=== PATIENT | male | born 1980 | race Caucasian/White ===

== ENCOUNTER 2019-10-05 23:24 | Emergency (ER) | payer SELFPAY ==
[~2019-10-05] VITALS: Ht 172.7 cm; Wt 74.8 kg
--- NOTE | 2019-10-05 23:45 | NUR ---
ED Nurse Note: Recieved pt from home, here with c/o SOB, pt states staarted about 1 hour ago, pt actually denies symptoms now, st
--- NOTE | 2019-10-05 23:45 | Emergency Room Report ---
History of Present Illness General Chief Complaint: Dyspnea/Respdistress Source: Patient Present Illness [facility] This a 39-year-old male with no past medical history. He presents with complaint of shortness of breath. Onset was 1 hour prior to arrival. He was laying in bed and also he felt short of breath. Also had chills. Denies any fever. No nausea no vomiting. No cough. His sister was positive for COVID couple weeks ago. They live in the same household. He denies any chest pain. No exertional component. No anxiety but said that he had some symptom about 10 years ago and the doctor told him he had a panic attack. He said he was calm and does not feel anxious. Allergies: Coded Allergies: No Known Allergies (Unverified , 10/05/19) COVID-19 Screening Contact w/high risk pt: No Experienced COVID-19 symptoms?: No COVID-19 Testing performed LINE PERSON: No Patient History Past Medical History: none, see triage record, old chart reviewed Past Surgical History: none Pertinent Family History: none Social History: Denies: smoking Immunizations: other Reviewed Nursing Documentation: PMH: Agreed; PSxH: Agreed Nursing Documentation-PMH Past Medical History: No Stated History Review of Systems Eye: Denies: eye pain, blurred vision ENT: Denies: ear pain, nose congestion, throat swelling Respiratory: Reports: shortness of breath; Denies: cough Cardiovascular: Denies: chest pain, palpitations Gastrointestinal: Denies: abdominal pain, diarrhea, nausea, vomiting Musculoskeletal: Denies: back pain, joint pain Skin: Denies: rash Neurological: Denies: headache, numbness Endocrine: Denies: increased thirst, increased urine Hematologic/Lymphatic: Denies: easy bruising All Other Systems: negative except mentioned in HPI Physical Exam Vital Signs Date Time Temp Pulse Resp B/P (MAP) Pulse Ox O2 Delivery O2 Flow Rate FiO2 10/05/19 23:29 98.6 127 18 147/82 (103) 99 Room Air Vitals with tachycardia Sp02 EP Interpretation: reviewed, normal General Appearance: well appearing, no apparent distress, alert Head: normocephalic, atraumatic Eyes: bilateral eye PERRL, bilateral eye EOMI ENT: hearing grossly normal, normal pharynx Neck: full range of motion, supple, no meningismus Respiratory: chest non-tender, lungs clear, normal breath sounds Cardiovascular #1: regular rate, rhythm, no murmur Gastrointestinal: normal bowel sounds, non tender, no mass, no organomegaly, no bruit, non-distended Musculoskeletal: back normal, normal range of motion, gait/station normal Psychiatric: mood/affect normal Medical Decision Making Diagnostic Impression: Primary Impression: Dyspnea Qualified Codes: R06.00 - Dyspnea, unspecified ER Course This patient presents with dyspnea. No evidence of ACS, PE, dissection to name a few. Heart rate is now back to normal. Because of the COVID pandemic and his exposure to his sister who was positive, this could also be early COVID infection. Even though his test was negative, it could be a false negative because of her early process. Explained this to the patient. Could also be a panic attack since he had this before. He is back to baseline. Will discharge home. This patient was evaluated in the context of the global COVID-19 pandemic, which necessitated consideration that the patient might be at risk for infection with the [id number] virus that causes COVID-19. Institutional protocols and algorithms that pertain to the evaluation of patients at risk for COVID-19 and the state of rapid change based on information released by multiple regulatory bodies including the CDC and federal and state organizations. These policies and algorithms were followed during the patient' s care in the ED. Chest X-Ray Diagnostic Results Chest X-Ray Diagnostic Results : Chest X-Ray Ordered: Yes # of Views/Limited/Complete: 1 View Indication: Shortness of Breath EP Interpretation: Yes Interpretation: no consolidation, no effusion, no pneumothorax, no acute cardiopulmonary disease Impression: No acute disease Electronically Signed by: Carlos Stearns MD Last Vital Signs Date Time Temp Pulse Resp B/P (MAP) Pulse Ox O2 Delivery O2 Flow Rate FiO2 10/05/19 23:29 98.6 127 18 147/82 (103) 99 Room Air Status: improved Disposition: HOME, SELF-CARE Condition: Stable Scripts Albuterol Sulfate (VENTOLIN HFA) 18 Gm Hfa.aer.ad 2 PUFFS INH EVERY 6 HOURS, #18 GM 0 Refills Prov: Carlos Stearns MD 10/06/19 Referrals: NOT CHOSEN IPA/,REFERRING (PCP) Patient Instructions: Shortness of Breath, Qdjp-qo-Osoc Additional Instructions: Follow-up with in 7 days. Return if symptoms worsen. Your COVID test here was negative. Because your symptoms just started, this could be a false negative. If you have fever or still have shortness of breath , you may need to be retested. This can be done as an outpatient through your doctor or [facility] [place]. Carlos Stearns MD Oct 05, 2019 23:45
--- NOTE | 2019-10-05 23:46 | NUR ---
ED Nurse Note: Recieved pt from home with c/o SOB, pt states s/s are resolved now, pt ahs HX iof severe anxiety and states he use to take marijuanna for anxiety but he stopped 2 weeks ago, pt sister has Covid and he is anxious and concerned because he was around her, pt has no fevers, cough, pain, or any other s/s, v/s stable, o2 bnb=875% on RA, will place IV jackson as ordered and lkabs, pt on continuous monitoring. will closely monitor for any changes or increased distress, no sob noted at this time.
[2019-10-06] VITALS: BP 136/87
[2019-10-06] MEDS ORDERED: dexAMETHasone 10mg/ml Inj IV ONE
[2019-10-06 00:25] LABS: BASOPHILS % (AUTO) 0.8 % (0.0-2.0); EOSINOPHILS % (AUTO) 2.3 % (0.0-3.0); HEMATOCRIT 47.2 % (42.0-52.0); LYMPHOCYTES % (AUTO) 14.3 % (20.0-45.0); MEAN CORPUSCULAR VOLUME 77 FL (80-99); MONOCYTES % (AUTO) 4.1 % (1.0-10.0); NEUTROPHILS % (AUTO) 78.6 % (45.0-75.0); PLATELET COUNT 160 K/UL (150-450); RED CELL DISTRIBUTION WIDTH 11.5 % (11.6-14.8); WHITE BLOOD COUNT 9.1 K/UL (4.8-10.8)
[2019-10-06 00:26] LABS: ANION GAP 8 mmol/L (5-15); BLOOD UREA NITROGEN 16 mg/dL (7-18); CALCIUM 9.7 MG/DL (8.5-10.1); CARBON DIOXIDE 30 MMOL/L (21-32); CHLORIDE 99 MMOL/L (98-107); POTASSIUM 3.6 MMOL/L (3.5-5.1); SODIUM 137 MMOL/L (136-145)
--- NOTE | 2019-10-06 00:26 | Diagnostic Imaging Report ---
INDICATION: Shortness of breath COMPARISON: FINDINGS: Single frontal view demonstrates a normal cardiomediastinal silhouette. The lungs are clear. No pleural effusions. The visualized osseous structures are within normal limits. IMPRESSION: No acute cardiopulmonary disease.
[2019-10-06] MEDS ORDERED: VENTOLIN HFA18 GM INH (00:57)
[2019-10-06 01:00] VITALS: BP 131/81
--- NOTE | 2019-10-06 01:00 | NUR ---
ER DISCHARGE NOTE: Patient is cleared to be discharged per ERMD, pt is aox4, on room air, with stable vital signs. pt was given dc and prescription instructions, pt was able to verbalize understanding, pt id band and iv site removed without complications. pt is able to ambulate with steady gait. pt took all belongings.
== END 2019-10-06 01:00 | disposition home or self-care (01) ==
LOC: EMR 23:31
DX: R06.00 Dyspnea, unspecified (principal); Z20.828 Contact with and (suspected) exposure to other viral communicable diseases
CPT/HCPCS: 36415; 71045; 80048; 85025; 85379; 96374; 99284; U0002